=== PATIENT | male | born 1980 | race Two or more races ===

== ENCOUNTER 2021-03-03 20:21 | Emergency (ER) | payer MEDICAID, OTHER ==
[~2021-03-03] VITALS: Ht 175.3 cm; Wt 95.3 kg
[2021-03-03 20:46] VITALS: BP 148/87
[2021-03-03] MEDS ORDERED: LIDOCAINE /MPF 1% VIAL 5 ML VIAL ONE (20:55)
[2021-03-03] MEDS ORDERED: ACETAMINOPHEN ES 500 MG TABLET ONE (20:57)
[2021-03-03] MEDS ORDERED: SULFAMETH/TRIMETH 800/160 MG 1 UDTAB TABLET ONE (20:57)
[2021-03-03] MEDS ORDERED: CEPHALEXIN MONOHYDRATE 500 MG CAPSULE PO ONE ×2 (20:57→21:00)
[2021-03-03] MEDS ORDERED: TDAP [DIPH/PERTUSSIS/TET] 0.5 ML VIAL IM ONE ×2 (20:58→21:00)
[2021-03-03] MEDS ORDERED: ACETAMINOPHEN 325 MG TABLET PO ONE (21:00)
[2021-03-03] MEDS ORDERED: SULFAMETH/TRIMETH 800/160 MG 1 UDTAB TABLET PO ONE (21:00)
--- NOTE | 2021-03-03 21:07 | NUR ---
PROVIDER AT BEDSIDE FOR I&D
[2021-03-03] MEDS ORDERED: CEPH500T PO (21:16)
[2021-03-03] MEDS ORDERED: IBUP-1955 PO (21:16)
[2021-03-03] MEDS ORDERED: SULF1TAB48 PO (21:16)
--- NOTE | 2021-03-03 21:44 | NUR ---
Note [place] in ED - 03/03/21 at 2145 by CAIN Patient discharged to home in stable condition. Written and verbal after care instructions given. Patient verbalizes understanding of instruction.IV removed. Catheter intact and site benign. Pressure and 4x4 applied to site. No bleeding noted.(pt. name) ambulatory with a steady gait
--- NOTE | 2021-03-03 21:45 | NUR ---
Patient discharged to home in stable condition. Written and verbal after care instructions given. Patient verbalizes understanding of instruction. Pt ambulatory with a steady gait
== END 2021-03-03 21:45 | disposition home or self-care (01) ==
LOC: ER 20:22
DX: L03.012 Cellulitis of left finger (principal); E11.9 Type 2 diabetes mellitus without complications; I10 Essential (primary) hypertension; Z79.899 Other long term (current) drug therapy
CPT/HCPCS: 10060; 90471; 90715; 99284; J3490; J7030